=== PATIENT | female | born 1955 | race Caucasian/White ===

== ENCOUNTER 2016-07-20 11:25 | Outpatient (CLI) | payer OTHER | END 2016-07-20 11:26 | disposition home or self-care (01) | DX: G47.33 Obstructive sleep apnea (adult) (pediatric) (principal) ==

== ENCOUNTER 2016-10-10 11:32 | Outpatient (CLI) | payer OTHER | END 2016-10-10 11:33 | disposition home or self-care (01) | DX: G47.33 Obstructive sleep apnea (adult) (pediatric) (principal) ==

== ENCOUNTER 2016-10-30 14:29 | Outpatient (CLI) | payer OTHER ==
--- NOTE | 2016-11-08 09:26 | Mammography Report ---
DIGITAL BILATERAL SCREENING MAMMOGRAM: 10/30/2016 CLINICAL HISTORY: A 61-year-old female in for routine screening mammogram. The patient has no family history of breast cancer. The patient has no prior breast surgeries. COMPARISON: 09/28/2011, 10/16/2013, 10/26/2014. TECHNIQUE: Routine CC and MLO projections were obtained of the breasts. FINDINGS: The breast parenchyma consists almost entirely of fat. A few scattered benign appearing ca lcifications are once again seen. No significant clusters of calcifications are seen. No significant masses are noted. No change is seen. IMPRESSION: BREASTS APPEAR RADIOGRAPHICALLY BENIGN. BIRADS CATEGORY 1-NEGATIVE. RECOMMENDATION: ANNUAL BILATERAL SCREENING MAMMOGRAPHY. STANDARD QUALIFYING STATEMENTS 1. This examination was reviewed with the aid of Computer-Aided Detection (CAD). 2. A negative or benign imaging report should not delay biopsy if clinically suspicious findings are present. Consider surgical consultation if warranted. More than 5% of cancers are not identified by i maging. 3. Dense breasts may obscure an underlying neoplasm. JOB #: [id number] EXT JOB #:[id number]
== END 2016-10-30 14:30 | disposition home or self-care (01) ==
LOC: DI 14:29
PROVIDERS: ATTEND Physician Assistant Medical
DX: Z12.31 Encounter for screening mammogram for malignant neoplasm of breast (principal)
CPT/HCPCS: 77067

== ENCOUNTER 2017-03-26 10:19 | Outpatient (CLI) | payer OTHER ==
[2017-03-26 18:07] LABS: BASOPHILS # (AUTO) 0.1 10^3/uL (0.0-0.1); BASOPHILS % (AUTO) 1.3 %; EOSINOPHILS # (AUTO) 0.1 10^3/uL (0.0-0.7); EOSINOPHILS % (AUTO) 1.6 %; HCT - HEMATOCRIT 43.1 % (37.0-47.0); HGB - HEMOGLOBIN 14.2 g/dL (12.0-16.0); LYMPHOCYTES % (AUTO) 32.5 %; MEAN CORPUSCULAR HGB CONC 32.9 g/dL (32.0-36.0); MEAN CORPUSCULAR VOLUME 97.1 fL (81.0-99.0); MEAN PLATELET VOLUME 9.6 fL (7.9-10.8); MONOCYTES # (AUTO) 0.6 10^3/uL (0.0-1.0); MONOCYTES % (AUTO) 10.2 %; NEUTROPHILS # (AUTO) 3.3 10^3/uL (1.5-6.6); NEUTROPHILS % (AUTO) 54.4 %; RED BLOOD COUNT 4.44 10^6/uL (4.20-5.40); RED CELL DISTRIBUTION WIDTH 13.4 % (12.0-15.0); UNCORRECTED WHITE BLOOD COUNT 6.1 x10^3/uL; WHITE BLOOD COUNT 6.1 x10^3/uL (4.8-10.8)
[2017-03-26 18:11] LABS: ALBUMIN/GLOBULIN RATIO 1.5 (1.0-2.2); BILIRUBIN,TOTAL 0.9 mg/dL (0.2-1.0); BUN - BLOOD UREA NITROGEN 21 mg/dL (6-20); CALCIUM 9.5 mg/dL (8.5-10.3); CARBON DIOXIDE - CO2 27 mmol/L (21-32); CHLORIDE 99 mmol/L (101-111); CHOL/HDL RATIO 2.7 (<4.4); CHOLESTEROL 177 mg/dL; CREATININE 0.8 mg/dL (0.4-1.0); GFR - MDRD 72 (>89); GLUCOSE 112 mg/dL (70-100); HDL CHOLESTEROL 66 mg/dL; LDL/HDL RATIO 1.1 (<4.4); POTASSIUM 3.8 mmol/L (3.5-5.0); SODIUM 136 mmol/L (135-145); TOTAL PROTEIN 7.9 g/dL (6.7-8.2); TRIGLYCERIDES 184 mg/dL; VLDL CHOLESTEROL 37 mg/dL
== END 2017-03-26 10:20 | disposition home or self-care (01) ==
LOC: LAB.F 10:19
PROVIDERS: ATTEND Physician Assistant Medical
DX: I10 Essential (primary) hypertension (principal)
CPT/HCPCS: 36415; 80053; 80061; 85025

== ENCOUNTER 2017-10-22 13:19 | Outpatient (CLI) | payer OTHER ==
--- NOTE | 2017-10-22 14:06 | XRAY Report ---
TWO VIEW LEFT HAND: 10/22/2017 CLINICAL INDICATION: Cellulitis. FINDINGS: Frontal and lateral views of the left hand demonstrate soft tissue swelling of the third digit. There is no evidence of fracture or radiopaque foreign body in the soft tissues. IMPRESSION: SOFT TISSUE SWELLING, WITHOUT EVIDENCE OF FRACTURE OR RADIOPAQUE FOREIGN BODY. TD: 10/22/2017 14:06
--- NOTE | 2017-10-22 14:08 | XRAY Report ---
TWO VIEW LEFT FOREARM: 10/22/2017 CLINICAL INDICATION: Cellulitis. FINDINGS: Frontal and lateral views of the left forearm demonstrate no evidence of fracture. Dorsal soft tissue swelling is present. No radiopaque foreign body is seen in the soft tissues. IMPRESSION: SOFT TISSUE SWELLING, BUT NO EVIDENCE OF FRACTURE OR RADIOPAQUE FOREIGN BODY. TD: 10/22/2017 14:07
== END 2017-10-22 13:20 | disposition home or self-care (01) ==
LOC: DI 13:19
PROVIDERS: ATTEND Internal Medicine
DX: L03.114 Cellulitis of left upper limb (principal)

== ENCOUNTER 2018-03-25 09:47 | Outpatient (CLI) | payer MEDICARE, OTHER ==
[2018-03-25 17:50] LABS: BASOPHILS # (AUTO) 0.1 10^3/uL (0.0-0.1); BASOPHILS % (AUTO) 0.9 %; EOSINOPHILS # (AUTO) 0.1 10^3/uL (0.0-0.7); EOSINOPHILS % (AUTO) 1.8 %; LYMPHOCYTES # (AUTO) 2.1 10^3/uL (1.5-3.5); LYMPHOCYTES % (AUTO) 26.3 %; MEAN CORPUSCULAR HEMOGLOBIN 31.5 pg (27.0-31.0); MEAN CORPUSCULAR HGB CONC 33.3 g/dL (32.0-36.0); MEAN CORPUSCULAR VOLUME 94.7 fL (81.0-99.0); MEAN PLATELET VOLUME 9.3 fL (7.9-10.8); MONOCYTES # (AUTO) 0.8 10^3/uL (0.0-1.0); MONOCYTES % (AUTO) 9.7 %; NEUTROPHILS % (AUTO) 61.3 %; PLT - PLATELET COUNT 305 10^3/uL (130-450); RED BLOOD COUNT 4.13 10^6/uL (4.20-5.40); RED CELL DISTRIBUTION WIDTH 15.1 % (12.0-15.0); WHITE BLOOD COUNT 8.2 x10^3/uL (4.8-10.8)
[2018-03-25 18:16] LABS: ALBUMIN 4.3 g/dL (3.2-5.5); ALBUMIN/GLOBULIN RATIO 1.3 (1.0-2.2); ALKALINE PHOSPHATASE 101 IU/L (42-121); ALT ALANINE AMINOTRANSFERASE 18 IU/L (10-60); AST ASPARTATE AMINOTRANSFERASE 26 IU/L (10-42); BILIRUBIN,TOTAL 0.7 mg/dL (0.2-1.0); BUN - BLOOD UREA NITROGEN 21 mg/dL (6-20); CALCIUM 9.2 mg/dL (8.5-10.3); CARBON DIOXIDE - CO2 28 mmol/L (21-32); CHLORIDE 97 mmol/L (101-111); CHOLESTEROL 221 mg/dL; CREATININE 0.7 mg/dL (0.4-1.0); GFR - MDRD 84 (>89); GLUCOSE 100 mg/dL (70-100); HDL CHOLESTEROL 74 mg/dL; LDL CHOLESTEROL,CALCULATED 81 mg/dL; LDL/HDL RATIO 1.1 (<4.4); SODIUM 135 mmol/L (135-145); TOTAL PROTEIN 7.5 g/dL (6.7-8.2); VLDL CHOLESTEROL 66 mg/dL
[2018-03-26 12:42] LABS: HEPATITIS C ANTIBODY NON-REACTIVE (NON-REACTIVE)
== END 2018-03-25 09:48 | disposition home or self-care (01) ==
LOC: LAB.F 09:47
PROVIDERS: ATTEND Physician Assistant Medical
DX: Z51.81 Encounter for therapeutic drug level monitoring (principal); E78.5 Hyperlipidemia, unspecified; Z11.59 Encounter for screening for other viral diseases
CPT/HCPCS: 36415; 80053; 80061; 83721; 85025; 86803

== ENCOUNTER 2018-08-20 09:14 | Outpatient (CLI) | payer MEDICARE, OTHER ==
--- NOTE | 2018-08-22 08:47 | DEXA Report ---
Reason: ASYMPTOMATIC MENOPAUSAL STATE Procedure Date: 08/20/2018 Accession Number: [id number] / [id number] Procedure: DEX - Dexa Spine and/or Hip CPT Code: FULL RESULT: EXAM: Dexa Forearm, Dexa Spine and/or Hip DATE: 08/20/2018 10:00 AM CLINICAL HISTORY: POSTMENOPAUSAL TECHNIQUE: Dual energy x-ray absorptiometry (DXA) was performed on a [employer] System. Regions measured are the AP Spine, femoral neck, and if needed forearm. COMPARISON: None. In accordance with the International Society for Clinical Densitometry (ISCD) guidelines, data from previous exams may be reanalyzed using current recommendations and techniques. This is done to allow a more accurate basis for comparison with the current study. FINDINGS: The data for the lumbar spine is as follows: BMD (g/cm/cm) T-SCORE Z-SCORE REGION L1 1.249 1.0 2.2 L2 1.665 3.9 5.1 L3 1.782 4.8 6.1 L4 1.694 4.1 5.3 TOTAL 1.601 3.5 4.7 NOTE: All evaluable vertebrae are used for classification The data for the hip is as follows: BMD (g/cm/cm) T-SCORE Z-SCORE REGION Neck 0.873 -1.2 0.0 TOTAL 0.897 -0.9 0.1 NOTE: The femoral neck or total proximal femur, whichever is lowest, is used for classification. The data for the left forearm is as follows: BMD (g/cm/cm) T-SCORE Z-SCORE REGION 1/3 0.702 -2.0 -0.6 NOTE: The 33% radius of the nondominant forearm is used for classification. IMPRESSION: THE WHO CLASSIFICATION BASED ON THE INTERNATIONAL REFERENCE STANDARD IS OSTEOPENIA. THE FRACTURE RISK IS INCREASED. RECOMMENDATION: Patients with diagnosis of osteoporosis or osteopenia should have regular bone mineral density assessment. For those eligible for Medicare, routine testing is allowed once every 2 years. Testing frequency can be increased for patients who have rapidly progressing disease or for those who are receiving medical therapy to restore bone mass. COMMENT: World Health Organization (WHO) definitions for osteoporosis and osteopenia: NORMAL BMD: T-score at -1.0 or higher, fracture risk is low OSTEOPENIA BMD: T-score between -1.0 and -2.5, fracture risk is increased. OSTEOPOROSIS BMD: T-score at -2.5 or lower, fracture risk is high. National Osteoporosis Foundation recommends: 1. Obtain adequate dietary calcium (at least 1200 mg per day) and vitamin D (400-800 international units per day). 2. Participate, as appropriate, in regular weightbearing and muscle-strengthening exercise. 3. Avoid tobacco use and reduce alcohol and caffeine intake. 4. For more detailed information see the website at www.NOF.org.
== END 2018-08-20 09:15 | disposition home or self-care (01) ==
LOC: DI 09:14
PROVIDERS: ATTEND Physician Assistant Medical
DX: M85.89 Other specified disorders of bone density and structure, multiple sites (principal)
CPT/HCPCS: 77080; 77081

== ENCOUNTER 2018-10-21 11:05 | Outpatient (CLI) | payer MEDICARE, OTHER | END 2018-10-21 11:06 | disposition home or self-care (01) | LOC: SC 11:05 | PROVIDERS: ATTEND Nurse Practitioner Family | DX: G47.33 Obstructive sleep apnea (adult) (pediatric) (principal) | CPT/HCPCS: 99214; G0463; 99212 ==

== ENCOUNTER 2018-10-24 14:18 | Outpatient (CLI) | payer MEDICARE, OTHER ==
--- NOTE | 2018-10-25 08:32 | Mammography Report ---
Reason: SCREENING MAMMO Procedure Date: 10/24/2018 Accession Number: [id number] / [id number] Procedure: REJI - Screening Mammo w/Kvng CPT Code: FULL RESULT: EXAM: Screening Mammo w/Kvng DATE: 10/24/2018 2:52 PM CLINICAL HISTORY: Screening encounter. History of late childbearing. TECHNIQUE: (B) - Bilateral CC and MLO views were obtained. COMPARISON: 10/30/2016 through 09/28/2011. PARENCHYMAL PATTERN: (F) - The breast(s) demonstrate(s) diffuse fatty replacement. FINDINGS: There are coarse typically benign calcifications. There are no suspicious masses, calcifications, or areas of distortion. IMPRESSION: Benign findings. BI-RADS category 2. RECOMMENDATION: (ANNUAL) - Recommend routine annual screening mammography. BI-RADS CATEGORY: (2) - Benign Findings. STANDARD QUALIFYING STATEMENTS: 1. This examination was not reviewed with the aid of Computer-Aided Detection (CAD). 2. A negative or benign imaging report should not preclude biopsy if clinically suspicious findings are present. 3. Dense breasts may obscure an underlying neoplasm. 4. This examination was reviewed with the aid of 3D breast imaging (tomosynthesis).
== END 2018-10-24 14:19 | disposition home or self-care (01) ==
LOC: DI 14:18
PROVIDERS: ATTEND Physician Assistant Medical
DX: Z12.31 Encounter for screening mammogram for malignant neoplasm of breast (principal)
CPT/HCPCS: 77063; 77067

== ENCOUNTER 2019-05-06 10:55 | Outpatient (CLI) | payer MEDICARE, OTHER ==
--- NOTE | 2019-05-07 10:00 | XRAY Report ---
Reason: WRIST JOINT PAIN, RIGHT Procedure Date: 05/06/2019 Accession Number: [id number] / [id number] Procedure: XRS - Wrist 2 View RT CPT Code: Final Report FULL RESULT: EXAM: RIGHT WRIST RADIOGRAPHY EXAM DATE: 05/06/2019 11:08 AM. CLINICAL HISTORY: WRIST JOINT PAIN, RIGHT. Lateral side pain. COMPARISON: None. TECHNIQUE: 2 views. FINDINGS: Bones: Normal. No fractures or bone lesions. Joints: Normal. No subluxations. Soft Tissues: Normal. No soft tissue swelling. IMPRESSION: Negative wrist 2 view radiography. RADIA
== END 2019-05-06 10:56 | disposition home or self-care (01) ==
LOC: DI.S 10:55
PROVIDERS: ATTEND Registered Nurse
DX: M25.531 Pain in right wrist (principal)

== ENCOUNTER 2020-07-27 09:50 | Outpatient (CLI) | payer MEDICARE, OTHER ==
--- NOTE | 2020-07-27 10:02 | SLEEP CARE CONSULTATION ---
Information from patient questionnaire entered by Claudia Aranda. I have reviewed and concur with the information entered by Claudia Aranda. This document represents the service I personally performed and the decisions made by , Saima Anderson ARNP. History of Present Illness Service Date and Time: 07/27/2020 0940 Previous diagnosis: Moderate, Obstructive Sleep Apnea-Hypopnea Syndrome AHI: 20.5 (in 2013) Reason for follow up: annual (last seen 10/2018) Equipment type: CPAP Equipment obtained from: [facility] (hasn't gotten supplies for a year) Mask style: Nasal pillows (extra small) Backup mask available: No (needs supplies first) Last cushion change: October 2019 Prior sleep studies: Yes Year and Where: 2013 - [facility] Type of Sleep Study: Polysomnography HPI additional information: MIGUEL DEL REAL was diagnosed to have moderate, AHI 20.5, obstructive sleep apnea- hypopnea syndrome and returns via Telehealth visit today for CPAP therapy annual follow-up. CPAP Compliance Data - Data Reviewed with Patient Average duration of nightly device use: 6 hr 20 min Compliance rate %: 70.6 (180 days) Current pressure setting (cmH2O): 5-8 Humidity settin Average residual AHI: 4.3 Average large leak: 1 min 47 sec Subjective Missed days of use due to: reports: illness (hospital for a month, then did not use for several months after) Patient concerns: reports: air blowing in eyes, mask leak noise, dry mouth, nose, throat (when the mask falls off; she sleeps with mouth open). denies: aerophagia, mask discomfort, condensation in mask/hose, nasal congestion, epistaxis, other Observed to snore while using device: No Current pressure setting perceived as: comfortable On therapy, patient: reports: sleeping better, awakening more refreshed, being more awake and alert during the day, more rested overall. denies: drowsiness while driving Initial [place] Sleepiness Scale score: 2 (in 2013) Current [place] Sleepiness Scale score: 2 Allergies and Home Medications Drug allergies reviewed: Yes (Sulfa drugs, Lisinopril) Home medication list reviewed: Yes Allergy and home medication list: Gabapentin Atorvastatin Stopped simvastatin Review of Systems Review of systems same as previous: No (T10 to S2 reconstructive spinal surgery October 2019) Physical Exam Vital signs obtained and entered by: Telehealth visit to reduce exposure during Covid pandemic Impression and Plan 1. Obstructive Sleep Apnea-Hypopnea Syndrome, moderate, with fair treatment compliance and fair apnea control. On CPAP therapy, the patient has better sleep quality and is more rested overall. She has not been able to get supplies for the last year and is not sure why. She will call them if they do not contact her in about a week. She has no issue except she has had more mask leaking due to needing a replacement mask for a better fit. She also needs to update her headgear and tubing. I will redo a prescription for her to update her supplies and send to [facility]. Patient's apnea severity and rationale for treatment to reduce apnea, improve sleep quality and reduce cardiovascular and cerebrovascular events was reviewed. I also reviewed the benefit of consistent device use of CPAP for hypertension. * Continue auto CPAP pressure at 5-8 cmH2O * Update supplies * Notify me if snoring with mask or feeling that the pressure is too much or too little * Call this office if any problems using CPAP * Return for follow up in 1 year, or sooner if concerns arise Counseling Topics: Spare mask Visit Type: Telehealth Phone Video Type: VSee Patient Location: Home Location of Provider: Office Patient agrees and consents to this telehealth visit type: Yes Patient agrees to have their insurance billed: Yes Time Spent with Patient (minutes): 21 Provider Statement: I spent 100% of the Telehealth Phone Call with the patient with greater than 50% spent counseling the patient and coordination of care.
== END 2020-07-27 09:51 | disposition home or self-care (01) ==
LOC: SC 09:50
PROVIDERS: ATTEND Nurse Practitioner Family
DX: G47.33 Obstructive sleep apnea (adult) (pediatric) (principal)

== ENCOUNTER 2021-07-18 13:18 | Outpatient (CLI) | payer MEDICARE, OTHER ==
--- NOTE | 2021-07-19 08:46 | Mammography Report ---
BILATERAL DIGITAL SCREENING MAMMOGRAM 3D/2D: 07/18/2021 CLINICAL: Routine screening. Comparison is made to exams dated: 10/24/2018 mammogram and 10/30/2016 mammogram - [facility]. The tissue of both breasts is predominantly fatty. No significant masses, calcifications, or other findings are seen in either breast. There has been no significant interval change. IMPRESSION: NEGATIVE There is no mammographic evidence of malignancy. A 1 year screening mammogram is recommended. This exam was interpreted at Station ID: [id number]. NOTE: For mammograms, a report in lay terms will be sent to the patient. Approximately 15% of breast malignancies will not be visualized mammographically. In the management of a palpable breast mass, a negative mammogram must not discourage biopsy of a clinically suspicious lesion. Electronically Signed By: Jake hong/penrad:07/18/2021 14:28:23 ACR BI-RADS Category 1: Negative 3341F PARENCHYMAL PATTERN: (F) - The breast(s) demonstrate(s) diffuse fatty replacement. BI-RADS CATEGORY: (1) - 1 RECOMMENDATION: (ANNUAL) - Recommend routine annual screening mammography. [id number] 1 year screening LATERALITY: (B)
== END 2021-07-18 13:19 | disposition home or self-care (01) ==
LOC: DI.S 13:18
DX: Z12.31 Encounter for screening mammogram for malignant neoplasm of breast (principal)

== ENCOUNTER 2021-09-05 16:04 | Outpatient (CLI) | payer MEDICARE, OTHER ==
--- NOTE | 2021-09-05 16:54 | XRAY Report ---
PROCEDURE: Foot 3 View RT INDICATIONS: PAIN IN RIGHT FOOT TECHNIQUE: 3 views of the foot were acquired. COMPARISON: None FINDINGS: Bones: Remote orthopedic fusion of the first MTP joint. At least 3 of the orthopedic screws fracture d. No bony fractures or dislocations. No suspicious bony lesions. Soft tissues: No tibiotalar joint effusion. Achilles tendon appears normal. IMPRESSION: Orthopedic hardware failure at the first MTP fusion site, with fracture of at least 3 of the screws. Reviewed by: Lc Chan MD on 09/05/2021 4:53 PM PDT Approved by: Lc Chan MD on 09/05/2021 4:53 PM PDT Station ID: [id number]
== END 2021-09-05 23:59 | disposition home or self-care (01) ==
LOC: DI.S 16:04
PROVIDERS: ATTEND Emergency Medicine
DX: M79.671 Pain in right foot (principal); T84.498S Other mechanical complication of other internal orthopedic devices, implants and grafts, sequela

== ENCOUNTER 2022-02-27 22:28 | Emergency (ER) | payer MEDICARE, OTHER ==
[2022-02-27] MEDS ORDERED: oxyCODONE 5 MG TABLET PO STA (22:59)
[2022-02-27] MEDS ORDERED: IBUPROFEN 400 MG TABLET PO STA (22:59)
[2022-02-27] MEDS ORDERED: IBUPROFEN 400 MG TABLET PO ONE (23:39)
[2022-02-28] MEDS ORDERED: oxyCODONE/ACET 5/325 Prepack 4 PO STA (00:20)
--- NOTE | 2022-02-28 00:23 | ED Physician Documentation ---
History of Present Illness - Stated complaint Stated Complaint: GLF,LT ARM INJ - Chief complaint Chief Complaint: Trauma Ext - History obtained from History obtained from: Patient - Additonal information Additional information: 66-year-old woman, right handed, presents status post ground-level fall onto her left shoulder and upper arm on concrete today. Sudden onset pain To the left arm radiating up to the shoulder and down to the elbow, constant, aching, severe 9 out of 10. Denies other injury. Review of Systems Musculoskeletal: reports: Extremity pain PD PAST MEDICAL HISTORY - Past Medical History Past Medical History: Yes Cardiovascular: Hypertension Respiratory: None Neuro: None Endocrine/Autoimmune: None GI: None SUPPLY MANAGER: None : None HEENT: None Psych: None Musculoskeletal: Other Derm: None - Past Surgical History Past Surgical History: Yes General: Other Ortho: Other HEENT: Tonsil/Adenoidectomy - Present Medications Home Medications: Ambulatory Orders Medication Instructions Recorded Confirmed Atorvastatin Calcium 40 mg PO DAILY 02/27/22 02/27/22 Gabapentin [Gralise] 300 mg PO DAILY 02/27/22 02/27/22 Triamterene/Hydrochlorothiazid 1 tablet PO DAILY 02/27/22 02/27/22 [Triamterene-Hctz 37.5-25 mg Cp] atenoloL [Tenormin] 50 mg PO DAILY 02/27/22 02/27/22 Oxycodone HCl/Acetaminophen 1 each PO Q4H PRN #10 tablet 02/28/22 [Percocet 10-325 mg Tablet] - Allergies Allergies/Adverse Reactions: Allergies Allergy/AdvReac Type Severity Reaction Status Date / Time lisinopril Allergy Anaphylaxis Verified 02/27/22 22:31 Sulfa (Sulfonamide Allergy Anaphylaxis Verified 02/27/22 22:31 Antibiotics) - Social History Does the pt smoke?: Yes Smoking Status: Current every day smoker Does the pt drink ETOH?: No Does the pt have substance abuse?: No - Immunizations Immunizations are current?: No - POLST Patient has POLST: No PD ED PE NORMAL - Vitals Vital signs reviewed: Yes - General General: Alert and oriented X 3, No acute distress, Well developed/nourished - HEENT HEENT: Atraumatic, PERRL, EOMI - Derm Derm: Normal color, Warm and dry - Extremities Extremities: Other (Left mid humerus with significant past soft tissue swelling and tenderness to palpation. limited range of motion of elbow and shoulder. L clavicle, forearm nontender. 2+ BL radial pulses, sensation, cap refill, distal strength) - Neuro Neuro: Alert and oriented X 3, No motor deficit, No sensory deficit - Psych Psych: Normal mood, Normal affect Results - Vitals Vitals: Vital Signs - 24 hr 02/27/22 02/27/22 22:31 23:07 Temperature 36.5 C Heart Rate 86 Respiratory 18 16 Rate Blood Pressure 149/89 H O2 Saturation 97 Oxygen O2 Source Room air PD MEDICAL DECISION MAKING - ED course ED course: 66-year-old woman presents with left midshaft humerus fracture. Coaptation splint applied. Pain medication provided with return precautions. She will follow-up with orthopedics in 2 weeks. Departure - Departure Disposition: 01 Home, Self Care Clinical Impression: Humerus fracture Condition: Stable Instructions: Humerus Fx Follow-Up: Ryan Smith MD [Provider Admit Priv/Credential] - Prescriptions: Oxycodone HCl/Acetaminophen [Percocet 10-325 mg Tablet] 1 each PO Q4H PRN #10 tablet PRN Reason: Pain Comments: You were seen in the emergency department for a left midshaft humerus fracture. You need to follow-up with orthopedics within 2 weeks. Return to the emergency department if you have issues with your splint, new or worsening symptoms or other concerns.
[2022-02-28 00:38] VITALS: BP 130/91
--- NOTE | 2022-02-28 01:04 | XRAY Report ---
PROCEDURE: Elbow 2 View LT INDICATIONS: humerus pain s/p fall TECHNIQUE: 3 views of the elbow were acquired. COMPARISON: Concurrent study of the left humerus. FINDINGS: Bones: No fractures or dislocations. No suspicious bony lesions. Soft tissues: No elbow joint effusion. No suspicious soft tissue calcifications. IMPRESSION: 1. No fracture or dislocation. Reviewed by: Jared Ornelas MD on 02/28/2022 1:03 AM PDT Approved by: Jared Ornelas MD on 02/28/2022 1:03 AM PDT Station ID: [id number]
--- NOTE | 2022-02-28 01:05 | XRAY Report ---
PROCEDURE: Humerus LT INDICATIONS: pain s/p fall TECHNIQUE: 2 views of the humerus were acquired. COMPARISON: Concurrent study of the elbow. FINDINGS: Bones: There is a comminuted fracture of the humeral shaft with mild medial angulation. Soft tissues: No suspicious soft tissue calcifications. IMPRESSION: 1. Comminuted humeral shaft fracture. Reviewed by: Jared Ornelas MD on 02/28/2022 1:04 AM PDT Approved by: Jared Ornelas MD on 02/28/2022 1:04 AM PDT Station ID: [id number]
--- NOTE | 2022-02-28 01:07 | XRAY Report ---
PROCEDURE: Shoulder 2 View LT INDICATIONS: L humerus pain s/p fall on concrete TECHNIQUE: 3 views of the shoulder were acquired. COMPARISON: Concurrent study of the humerus. FINDINGS: Bones: There is a mildly comminuted fracture of the proximal humeral shaft. Associated mild dorsal an gulation is demonstrated. No suspicious bony lesions. Visualized ribs appear intact. Soft tissues: No suspicious soft tissue calcifications. IMPRESSION: 1. Mildly comminuted fracture of the proximal humeral shaft with mild angulation. Reviewed by: Jared Ornelas MD on 02/28/2022 1:05 AM PDT Approved by: Jared Ornelas MD on 02/28/2022 1:05 AM PDT Station ID: [id number]
== END 2022-02-28 01:07 | disposition home or self-care (01) ==
LOC: ED 22:28
DX: S42.302A Unspecified fracture of shaft of humerus, left arm, initial encounter for closed fracture (principal); W18.30XA Fall on same level, unspecified, initial encounter; I10 Essential (primary) hypertension; F17.200 Nicotine dependence, unspecified, uncomplicated
CPT/HCPCS: 73030; 73060; 73070; 99282; 99283; A9270

== ENCOUNTER 2022-05-31 13:07 | Outpatient (CLI) | payer MEDICARE, OTHER ==
--- NOTE | 2022-06-01 12:51 | DEXA Report ---
PROCEDURE: Dexa Spine and/or Hip INDICATIONS: ARM FX TECHNIQUE: Dual energy x-ray absorptiometry (DXA) was performed on a [employer] System. Regions measur ed are the AP Spine, femoral neck, and if needed forearm. COMPARISON: DEXA, 08/20/2018. FINDINGS: Lumbar Spine: Bone Mineral Density cannot be reliably obtained because of postsurgical changes. Left Femoral Neck: Bone Mineral Density 0.814 g/cm/cm, T score -1.6, osteopenia Left Hip: Bone Mineral Density 0.876 g/cm/cm,T score -1.0, osteopenia Left forearm (radius 33%): Bone Mineral Density 0.716 g/cm/cm, T score -1.8, osteoporosis (T score greater or equal to -1.0: NORMAL) (T score from -1.1 to -2.4: OSTEOPENIA) (T score less than or equal to -2.5 to: OSTEOPOROSIS) Impression: Based on WHO criteria, the patient is osteopenic. Compared to the prior exam dated 08/20/2018, there is no significant change. Patients with diagnosis of osteoporosis or osteopenia should have regular bone mineral density assess ment. For those eligible for Medicare, routine testing is allowed once every 2 years. Testing frequ ency can be increased for patients who have rapidly progressing disease or for those who are receivin g medical therapy to restore bone mass. Reviewed by: Mcihi Mcwilliams MD on 06/01/2022 12:50 PM PST Approved by: Michi Mcwilliams MD on 06/01/2022 12:50 PM PST Station ID: [id number]
== END 2022-05-31 13:08 | disposition home or self-care (01) ==
LOC: DI 13:07
PROVIDERS: ATTEND Orthopaedic Surgery
DX: M85.89 Other specified disorders of bone density and structure, multiple sites (principal); Z78.0 Asymptomatic menopausal state

== ENCOUNTER 2022-07-13 10:30 | Outpatient (CLI) | payer MEDICARE, OTHER ==
[2022-07-13 10:46] LABS: BASOPHILS # (AUTO) 0.1 10^3/uL (0.0-0.1); BASOPHILS % (AUTO) 0.9 %; EOSINOPHILS # (AUTO) 0.1 10^3/uL (0.0-0.7); EOSINOPHILS % (AUTO) 1.7 %; HCT - HEMATOCRIT 40.4 % (37.0-47.0); LYMPHOCYTES # (AUTO) 2.6 10^3/uL (1.5-3.5); LYMPHOCYTES % (AUTO) 37.8 %; MEAN CORPUSCULAR HEMOGLOBIN 31.2 pg (27.0-31.0); MEAN CORPUSCULAR HGB CONC 32.2 g/dL (32.0-36.0); MEAN CORPUSCULAR VOLUME 96.9 fL (81.0-99.0); MEAN PLATELET VOLUME 10.2 fL (7.9-10.8); MONOCYTES # (AUTO) 0.6 10^3/uL (0.0-1.0); MONOCYTES % (AUTO) 9.2 %; NEUTROPHILS # (AUTO) 3.5 10^3/uL (1.5-6.6); NEUTROPHILS % (AUTO) 50.3 %; PLT - PLATELET COUNT 271 10^3/uL (130-450); RED BLOOD COUNT 4.17 10^6/uL (4.20-5.40); RED CELL DISTRIBUTION WIDTH 13.9 % (12.0-15.0)
[2022-07-13 11:04] LABS: ALBUMIN 4.3 g/dL (3.2-5.5); ALBUMIN/GLOBULIN RATIO 1.2 (1.0-2.2); ALKALINE PHOSPHATASE 100 IU/L (42-121); ALT ALANINE AMINOTRANSFERASE 25 IU/L (10-60); AST ASPARTATE AMINOTRANSFERASE 32 IU/L (10-42); BILIRUBIN,TOTAL 1.2 mg/dL (0.2-1.0); BUN - BLOOD UREA NITROGEN 29 mg/dL (6-20); CALCIUM 9.9 mg/dL (8.5-10.3); CARBON DIOXIDE - CO2 28 mmol/L (21-32); CHLORIDE 98 mmol/L (101-111); CHOL/HDL RATIO 2.3 (<4.4); CHOLESTEROL 166 mg/dL; GFR - MDRD 55 (>89); GLUCOSE 115 mg/dL (70-100); HDL CHOLESTEROL 72 mg/dL; LDL CHOLESTEROL,CALCULATED 63 mg/dL; LDL/HDL RATIO 0.9 (<4.4); POTASSIUM 4.2 mmol/L (3.5-5.0); SODIUM 137 mmol/L (135-145); TRIGLYCERIDES 157 mg/dL; VLDL CHOLESTEROL 31 mg/dL
== END 2022-07-13 10:31 | disposition home or self-care (01) ==
LOC: LAB 10:30
PROVIDERS: ATTEND Hospitalist
DX: I10 Essential (primary) hypertension (principal); N39.0 Urinary tract infection, site not specified; E78.49 Other hyperlipidemia
CPT/HCPCS: 36415; 80053; 80061; 83721; 85025

== ENCOUNTER 2023-06-05 07:00 | Outpatient (CLI) | payer MEDICARE, OTHER ==
--- NOTE | 2023-06-05 15:15 | XRAY Report ---
PROCEDURE: Ankle 3 View LT INDICATIONS: LEFT ANKLE SPRAIN TECHNIQUE: 3 views of the ankle were acquired. COMPARISON: None. FINDINGS: Bones: No fractures or dislocations. Ankle mortise is normally aligned. No suspicious bony lesions . Soft tissues: No tibiotalar joint effusion. Achilles tendon appears normal. There is a degree of s oft tissue swelling at the ankle. IMPRESSION: No evidence acute bony abnormality of the left ankle. If clinical suspicion and/or symptoms persist, further assessment with repeat plain films or advanced imaging (e.g., CT, MRI, or bone scan) may be helpful for further assessment. Reviewed by: Lc Chan MD on 06/05/2023 3:14 PM PST Approved by: Lc Chan MD on 06/05/2023 3:14 PM PST Station ID: [id number]
== END 2023-06-05 23:59 | disposition home or self-care (01) ==
LOC: DI.S 07:00
PROVIDERS: ATTEND Physician Assistant Medical
DX: S93.492A Sprain of other ligament of left ankle, initial encounter (principal)

== ENCOUNTER 2023-06-06 07:29 | Outpatient (CLI) | payer MEDICARE, OTHER ==
--- NOTE | 2023-06-06 08:49 | Ultrasound Report ---
PROCEDURE: Duplex Ext Veins Left INDICATIONS: LEFT LEG PAIN AND SWELLING TECHNIQUE: Real-time imaging, as well as color and pulse Doppler interrogation, were performed of the lower extr emity deep veins from the inguinal ligament to the popliteal fossa. Attempted visualization of the ca lf veins was performed. COMPARISON: None. FINDINGS: The deep veins are normally compressible, and free of intraluminal thrombus. Color and pu lse Doppler demonstrate normal phasic intraluminal flow. There is normal augmentation response to di stal compression maneuver. IMPRESSION: No deep venous thrombosis of the visualized lower extremity. Reviewed by: Hermelinda Mejia MD on 06/06/2023 8:48 AM PST Approved by: Hermelinda Mejia MD on 06/06/2023 8:48 AM PST Station ID: [id number]
== END 2023-06-06 07:30 | disposition home or self-care (01) ==
LOC: DI 07:29
PROVIDERS: ATTEND Physician Assistant Medical
DX: M79.662 Pain in left lower leg (principal); R60.0 Localized edema

== ENCOUNTER 2023-07-04 15:38 | Outpatient (CLI) | payer MEDICARE, OTHER ==
[2023-07-04 15:53] LABS: HGB - HEMOGLOBIN 11.7 g/dL (12.0-16.0); MEAN CORPUSCULAR HEMOGLOBIN 31.3 pg (27.0-31.0); MEAN CORPUSCULAR HGB CONC 31.6 g/dL (32.0-36.0); MEAN CORPUSCULAR VOLUME 98.9 fL (81.0-99.0); MEAN PLATELET VOLUME 10.6 fL (7.9-10.8); RED BLOOD COUNT 3.74 10^6/uL (4.20-5.40); RED CELL DISTRIBUTION WIDTH 13.4 % (12.0-15.0); WHITE BLOOD COUNT 11.8 x10^3/uL (4.8-10.8)
[2023-07-04 16:21] LABS: CALCIUM 9.8 mg/dL (8.5-10.3); CREATININE 0.7 mg/dL (0.6-1.3); CRP - C-REACTIVE PROTEIN 4.3 mg/dL (<0.5); POTASSIUM 3.7 mmol/L (3.5-4.5); URIC ACID 7.2 mg/dL (2.3-6.6)
== END 2023-07-04 15:39 | disposition home or self-care (01) ==
LOC: LAB 15:38
PROVIDERS: ATTEND Physician Assistant
DX: M79.672 Pain in left foot (principal)
CPT/HCPCS: 36415; 80048; 84550; 85027; 85651; 86140

== ENCOUNTER 2023-08-13 10:20 | Outpatient (CLI) | payer MEDICARE, OTHER ==
[2023-08-13 10:41] LABS: BASOPHILS # (AUTO) 0.1 10^3/uL (0.0-0.1); BASOPHILS % (AUTO) 0.8 %; EOSINOPHILS # (AUTO) 0.1 10^3/uL (0.0-0.7); EOSINOPHILS % (AUTO) 1.7 %; HCT - HEMATOCRIT 40.7 % (37.0-47.0); HGB - HEMOGLOBIN 12.8 g/dL (12.0-16.0); LYMPHOCYTES # (AUTO) 2.5 10^3/uL (1.5-3.5); MEAN CORPUSCULAR HEMOGLOBIN 31.4 pg (27.0-31.0); MEAN CORPUSCULAR HGB CONC 31.4 g/dL (32.0-36.0); MEAN CORPUSCULAR VOLUME 99.8 fL (81.0-99.0); MEAN PLATELET VOLUME 10.6 fL (7.9-10.8); MONOCYTES # (AUTO) 0.7 10^3/uL (0.0-1.0); MONOCYTES % (AUTO) 7.7 %; NEUTROPHILS # (AUTO) 5.1 10^3/uL (1.5-6.6); NEUTROPHILS % (AUTO) 60.6 %; PLT - PLATELET COUNT 248 10^3/uL (130-450); RED BLOOD COUNT 4.08 10^6/uL (4.20-5.40); RED CELL DISTRIBUTION WIDTH 13.6 % (12.0-15.0); WHITE BLOOD COUNT 8.5 x10^3/uL (4.8-10.8)
[2023-08-13 10:56] LABS: ALBUMIN 4.7 g/dL (3.2-5.5); ALBUMIN/GLOBULIN RATIO 1.4 (1.0-2.2); ALKALINE PHOSPHATASE 65 IU/L (42-121); ALT ALANINE AMINOTRANSFERASE 16 IU/L (10-60); AST ASPARTATE AMINOTRANSFERASE 21 IU/L (10-42); BILIRUBIN,TOTAL 0.7 mg/dL (0.2-1.0); BUN - BLOOD UREA NITROGEN 25 mg/dL (6-20); CALCIUM 10.3 mg/dL (8.5-10.3); CARBON DIOXIDE - CO2 29 mmol/L (21-32); CHLORIDE 102 mmol/L (101-111); CHOL/HDL RATIO 2.5 (<4.4); CHOLESTEROL 165 mg/dL; CREATININE 0.9 mg/dL (0.6-1.3); GFR - MDRD 62 (>89); GLUCOSE 101 mg/dL (74-104); HDL CHOLESTEROL 66 mg/dL; LDL CHOLESTEROL,CALCULATED 63 mg/dL; POTASSIUM 3.5 mmol/L (3.5-4.5); SODIUM 138 mmol/L (135-145); TOTAL PROTEIN 8.1 g/dL (6.4-8.9); TRIGLYCERIDES 182 mg/dL (48-352); URIC ACID 7.2 mg/dL (2.3-6.6); VLDL CHOLESTEROL 36 mg/dL
== END 2023-08-13 10:21 | disposition home or self-care (01) ==
LOC: LAB 10:20
PROVIDERS: ATTEND Hospitalist
DX: I10 Essential (primary) hypertension (principal); M1A.0720 Idiopathic chronic gout, left ankle and foot, without tophus (tophi); E78.49 Other hyperlipidemia
CPT/HCPCS: 36415; 80053; 80061; 83721; 84550; 85025

== ENCOUNTER 2024-01-21 13:19 | Outpatient (CLI) | payer MEDICARE, OTHER ==
--- NOTE | 2024-01-21 18:15 | XRAY Report ---
PROCEDURE: Chest 2V INDICATIONS: COMMUNITY ACQUIRED PNEUMONIA TECHNIQUE: 2 views of the chest were acquired. COMPARISON: None. FINDINGS: Surgical changes and devices: Posterior vertebral body stabilization hardware from the lower thoraci c to the visible lumbar spine. No evidence of hardware fracture. Lungs and pleura: Minor biapical pleural plaquing, biapical upper lobe irregularity, hyperlucency an d hyperexpansion, suggesting COPD. There is irregular opacity in the left anterior lower lung/likely lingula partially obscuring the diaphragm contour. No pleural effusion. The right lung remains clear. Mediastinum: Mediastinal contours appear normal. Heart size is normal. Bones and chest wall: Chronic appearing wedge shape deformity in the midthoracic spine with mild ant erior sclerosis. No other bone lesions. IMPRESSION: Lingular opacity suggestive of pneumonia without pleural effusion. Findings suggestive of mild COPD. Reviewed by: Nany Foote MD on 01/21/2024 6:14 PM PDT Approved by: Nany Foote MD on 01/21/2024 6:14 PM PDT Station ID: [id number]
== END 2024-01-21 13:20 | disposition home or self-care (01) ==
LOC: DI 13:19
PROVIDERS: ATTEND Physician Assistant
DX: J18.9 Pneumonia, unspecified organism (principal)